=== PATIENT | male | born 1970 | race Caucasian/White ===

== ENCOUNTER 2016-10-11 11:36 | Emergency (ER) | payer OTHER ==
[2016-10-11] MEDS ORDERED: RABIES IMMUNE GLOBULIN 300 UNIT/2 ML VIAL IM ONE (11:57)
[2016-10-11] MEDS ORDERED: RABIES VACC, HUMAN DIPLOID/PF 2.5 UNIT VIAL (RABAVERT) IM ONE (11:57)
[2016-10-11] MEDS ORDERED: diphenhydrAMINE 25 MG CAP PO ONE (12:07)
--- NOTE | 2016-10-11 12:36 | EDPHY ---
H & P Stated Complaint: POSSIBLE BAT EXPOSURE HPI/ROS: Chief complaint: Bat exposure History of present illness: This is a 45-year-old male who presents to the emergency department for a bat exposure. Patient recently started to remodel his house. The ceiling to the attic has been removed. Apparently this displaced a colony of bats into the house. He has noticed bats in the house for number of days. He did call a bat expert to help him get rid of the bats, the expert estimated there were between 20 and 30 bats in the house. The have apparently been removed. Patient does not have any recollection of being bitten or scratched. He has no complaints. Review of systems: A 10 point review of systems was obtained and other than described above was negative - Personal History Tetanus Vaccine Date: 2009 - Medical/Surgical History Hx Asthma: No Hx Chronic Respiratory Disease: No Hx Diabetes: No Hx Cardiac Disease: No Hx Renal Disease: No Hx Cirrhosis: No Hx Alcoholism: No Hx HIV/AIDS: No Hx Splenectomy or Spleen Trauma: No Other PMH: right tib fx,Left Tib/Fib,Left collar bone,concussion. R HIP FXR/ SURGERY - Social History Smoking Status: Never smoked - Physical Exam Exam: General Appearance: Alert, nontoxic. Eyes: Pupils equal and round no injection. Respiratory: Chest is nontender, lungs are clear to auscultation. Cardiac: regular rate and rhythm. Gastrointestinal: Abdomen is soft and nontender, no masses, bowel sounds normal. Musculoskeletal: Neck is supple and nontender. Extremities have full range of motion and are nontender. Skin: No rashes or lesions. Neurological: Alert and oriented x4. Cranial nerves 2-12 grossly intact. Strength and sensation intact and symmetrical. Constitutional: Initial Vital Signs Temperature (C) 36.5 C 10/11/16 11:50 Heart Rate 51 L 10/11/16 11:50 Respiratory Rate 18 10/11/16 11:50 Blood Pressure 108/76 10/11/16 11:50 O2 Sat (%) 97 10/11/16 11:50 O2 Delivery Mode Room Air Allergies/Adverse Reactions: codeine Allergy (Severe, Verified 10/11/15 20:59) Hives Egg Derived Allergy (Verified 10/11/16 11:50) Home Medications: Medication Instructions Recorded Cholecalciferol Vit D3 [Vitamin D3 3,000 units PO HS 07/10/16 (*)] Loratadine [Claritin 10 mg] 10 mg PO DAILY 09/30/15 Multivitamins [Multivitamin (*)] 1 each PO DAILY 09/30/15 oxyCODONE CR [Oxycontin] 20 mg PO BID #0 tab 10/02/15 oxyCODONE IR [Oxycodone Ir (*)] 5 - 15 mg PO Q3 PRN #0 tab 10/02/15 Aspirin 81mg (*) 10/11/15 Medical Decision Making ED Course/Re-evaluation: Patient is discussed with my secondary supervising physician Dr. Isreal Weiss. Patient presents to the emergency department after being exposed to a colony of bats. No recollection of being scratched or bit. Nevertheless given the exposure we will start him on rabies post exposure prophylaxis. He does report a mild egg intolerance, he has gotten a rash from eggs before. He is premedicated with Benadryl. He is given rabies vaccination and immunoglobulin. He is discharged home. He understands he needs rabies vaccination on day 3, 7 and 14. He understands he come back here for the vaccination or see infectious disease was given referral information. Strict return precautions were given. Patient voiced understanding and agreement with plan. - Data Points Medications Given: Discontinued Medications Diphenhydramine HCl (Benadryl) 50 mg PO EDNOW ONE Stop: 10/11/16 12:08 Last Admin: 10/11/16 12:34 Dose: 50 mg Rabies Immune Globulin (Imogam Rabies Ht 2ml) 1,260 unit IM .ONCE ONE Stop: 10/11/16 11:58 Last Admin: 10/11/16 13:11 Dose: 1,260 unit Rabies Vaccine Human Diploid Cell (Rabavert) 2.5 unit IM .ONCE ONE Stop: 10/11/16 11:58 Last Admin: 10/11/16 13:02 Dose: 2.5 unit Departure - Departure Disposition: Home, Routine, Self-Care Clinical Impression: Rabies exposure Condition: Good Instructions: Rabies Vaccine (By injection), Rabies Immune Globulin (By injection), Rabies (ED) Additional Instructions: You were started on rabies vaccination series today. Today is day 0. You will need 3 more vaccinations on day 3, 7 and 14 - October 14 and and October 25. You received rabies immunoglobulin today. You will not need another dose. You can follow up with this emergency department or infectious disease for the next 3 rabies vaccinations. If you develop any symptoms return immediately to the emergency room. Referrals: Stefano Walker MD [Primary Care Provider] - As per Instructions Sharla Delgadillo MD [Medical Doctor] - As per Instructions
[2016-10-11 13:50] VITALS: BP 110/78; PULSE 48; RESP 16; TEMP 98.1; O2SAT 99
== END 2016-10-11 13:51 | disposition home or self-care (01) ==
DX: Z20.3 Contact with and (suspected) exposure to rabies (principal); Z23 Encounter for immunization; Z79.82 Long term (current) use of aspirin